=== PATIENT | male | born 1975 | race Caucasian/White ===

== ENCOUNTER → 2017-01-20 | Day surgery (SDC) | payer BC ==
[~2017-01-20] VITALS: Ht 193 cm; Wt 93.0 kg
[~2017-01-20] MED LIST: FENTANYL CITRATE INJ 50 MCG/1 ML 2 ML VIAL ONE; FLUT0.15 NAE; IBUP-1428 PO; ISOPROTERENOL 200 MCG / 50ML D5W IV ONE; LIDOCAINE HCL 1% 20 ML VIAL ONE; MIDAZOLAM HCL 5 MG/ML 1 ML VIAL ONE; MULT-506 PO; NURSING VERBAL MED ORDER ONE; OXYCODONE/ACETAMINOPHEN 5-325 TAB ONE; PANT40TA PO
[2017-01-20 12:19] VITALS: BP 121/79; PULSE 51; TEMP 36.4; O2SAT 99; Ht 193 cm; Wt 93.0 kg
--- NOTE | 2017-01-20 12:47 | History & Physical Bridge Note ---
H&P Re-Evaluation Bridge Note: I have examined the patient, reviewed the History & Physical and in the interval since the performance of the History & Physical I have noted the following changes of clinical significance: Updated HNP pt wishes to proceed with EPS and possible ablation
--- NOTE | 2017-01-20 12:48 | Procedure Note ---
Pre-Mod Sedation Assessment General Date of Moderate Sedation: Jan 20, 2017. Vital Signs: Vital Signs Past 12 Hours Date Time Temp Pulse Resp B/P (MAP) Pulse Ox O2 Delivery O2 Flow Rate FiO2 01/20/17 12:19 36.4 51 16 121/79 99 Room Air Review Cardiovascular: regular rate, rhythm, no JVD, + bradycardia Abdomen: soft Lungs: lungs clear Airway Class: II Pre-Sedation Airway Assessment Oral Cavity: WNL Short Thick Neck: No Hx of Sleep Apnea: No Smoking Status: Former Smoker Mallampati Classification: Class II ASA Classification: Class II Procedure Planning Contraindications-for Mod Sed: None Yes Notes The planned sedation has been discussed with the patient and consent obtained. I have identified the patient, determined the appropriateness of sedation and have assessed the patient immediately prior to the procedure. All medicine(s) and interventions are by my order.
--- NOTE | 2017-01-20 12:51 | History and Physical ---
History & Physical Date Jan 20, 2017. Chief Complaint palpitations History of Present Illness The patient is a 41 year old male with complaints of Past Medical/Surgical History PMH: pat raynauds cryptococcus/blastomytosis elevated TG PSH: EPS Amputation of finger/thumb colonoscpy appendectomy Additional History Hepatic Disease: No Endocrine Disorder: No Kidney Disease: No Hypertension: Yes Bleeding Tendencies: No Infectious Diseases: Yes Allergies Coded Allergies: No Known Allergies (Verified Allergy, Unknown, 08/18/04) Home Medications Scheduled Fluticasone Propionate (Nasal) (Flonase Allergy Relief), 2 SPRAYS ZEHRA DAILY Multivitamin (Multivitamin), 1 TAB PO DAILY Pantoprazole (Protonix), 40 MG PO DAILY Scheduled PRN Ibuprofen (Motrin), 800 MG PO TID PRN for Pain Physical Examination Skin: warm/dry Neck: supple Respiratory/Chest: lungs clear, normal breath sounds Cardiovascular: regular rate, rhythm, no edema, no murmur, + bradycardia Neurologic/Psych: alert ASA Classification: ASA Class II Plan of Treatment recommend eps with possible ablation
--- NOTE | 2017-01-20 15:04 | Procedure Note ---
Post-Mod Sedation Assessment General Date of Moderate Sedation Jan 20, 2017. Vital Signs: Vital Signs Past 12 Hours Date Time Temp Pulse Resp B/P (MAP) Pulse Ox O2 Delivery O2 Flow Rate FiO2 01/20/17 12:19 36.4 51 16 121/79 99 Room Air Review - Discharge Criteria Vital Signs Stable: Yes Alert/Oriented/Conversant: Yes Returned to Baseline Mental St: Yes Nausea Absent/Minimal: Yes Pain/Discomfort/Absent/Minimal: Yes Normal/Baseline Respirations: Yes Active Bleeding?: No Pt Received D/C Instructions: N/A Prescriptions Given: None Specific Proced. D/C Criteria Distal Pulses Present (Cardiac: Yes Groin site assessed-Card Cath: Yes Voided Prior To Discharge: N/A Discharged Patients Adult Escort/Transportation: N/A
--- NOTE | 2017-01-20 15:06 | [facility] Post Operative Brief Note ---
Immediate Operative Summary Operative Date Jan 20, 2017. Pre-Operative Diagnosis palpitations, pat Post-Operative Diagnosis same and inappropriate sinus tachycardia Procedure(s) Performed eps, isoprel infusion Surgeon walter davila Revenue Coordinator Surgeon(s) none Estimated Blood Loss <5cc Findings see official report Fluids (cc crystalloids) 300cc Specimens none Drains none Anesthesia 10mg versed and 250mcg fentanyl Complication(s) None Disposition laboratory technical specialist holding
--- NOTE | 2017-01-20 15:09 | Discharge Instructions ---
Discharge Instructions Date of Service Jan 20, 2017. Admission Reason for Admission: *No Anes Per [facility]* Svt Discharge Discharge Diagnosis / Problem: palpitations; inappropriate sinus tachycardia Discharge Goals Goal(s): Improve function Activity Recommendations Activity Limitations: as noted below Lifting Limitations: no more than 10 pounds (no heavy lifting or squating for 1 week) May Resume Sexual Activity: after one week Shower/Bathe: tomorrow Driving or Machine Use: resume 1 day after discharge . Instructions / Follow-Up Instructions / Follow-Up ACTIVITY RECOMMENDATIONS: It is common to feel weak and fatigue for a few days. * Do not drive or operate any motorized equipment for the next 1 day. * Limit stair usage (2 or 3 trips a day only) for the next 1 day. * Do not lift anything heavier than 10 pounds for the next 7 days. * Do not engage in vigorous exercise or any sports for the next 7 days. * You may shower the day after your procedure, but do not immerse the area for three days. Cleanse the site gently with soap and water. SPECIAL CARE INSTRUCTIONS: * You may replace the pressure dressing or band-aid the morning after the procedure. * After your procedure, it is normal to have a small bruise or small lump at the site. Examine your site daily for any change in the bruise or lump, redness, swelling, drainage or numbness. Notify your doctor if any change. BLEEDING: * If there is a small amount of bleeding at the site, lie down and apply firm pressure with a clean cloth for ten minutes. When the bleeding stops, lie quietly keeping the procedure limb straight for six hours. Notify your doctor as soon as possible. * If the bleeding does not stop after ten minutes or if there is a large amount of bleeding or spurting, call 911 immediately. Continue to lie down and hold firm pressure until help arrives. SKIN IRRITATION: * You may experience some redness and/or swelling in the area where radiation was administered. If any skin irritation occurs, please contact your family physician. FOLLOW UP VISIT: Keep any scheduled doctor appointments. Current Hospital Diet Patient's current hospital diet: Regular Diet Discharge Diet Recommended Diet: Regular Diet Procedures Procedures Performed: eps, isoprel infusion Pending Studies Studies pending at discharge: no Medical Emergencies . Who to Call and When: Medical Emergencies: If at any time you feel your situation is an emergency, please call 911 immediately. . Non-Emergent Contact Non-Emergency issues call your: Office Mover . . "Provider Documentation" section prepared by Sruthi Gray. . VTE Core Measure Inpt VTE Proph given/why not?: Treatment not indicated
--- NOTE | 2017-01-20 15:51 | OPERATIVE REPORT ---
DATE OF OPERATION: 01/20/2017 PREOPERATIVE DIAGNOSES: Palpitations and premature atrial contraction. POSTOPERATIVE DIAGNOSES: Same plus inappropriate sinus tachycardia. PROCEDURE: Electrophysiology study, isuprel drug infusion challenge. SURGEON: Sruthi Gray DO PEDAL ASSEMBLER: None. ANESTHESIA: Monitored conscious sedation administered under my supervision by Joni Lopez; start time 1318 and end time 1500, total of 10 mg of Versed, 250 mcg of fentanyl. INTRAVENOUS FLUIDS: 300 mL. COMPLICATIONS: None. CONDITION: Stable. URINE OUTPUT: Not applicable. SPECIMENS: None. FINDINGS: See below. DRAINS: None. INDICATIONS FOR PROCEDURE: This 41-year-old gentleman who has a past medical history for palpitations in which he underwent electrophysiology study went back in 1991 where he has reported to have had nonsustained paroxysmal atrial tachycardia. He then underwent another electrophysiology study in 1992 and was reported to have mapped the tachycardia to the RA SVC junction but no ablation was done probably because this was right over the SA node area. He had been on beta blockers and digoxin in the past as well as flecainide in the past. He also has a past medical history of Raynaud's phenomenon, cryptococcal blastomycosis of the lung in 2012, and elevated triglycerides in 2014. Due to his recurrent palpitations that seemed to be worsening, he was brought back for electrophysiology study in hopes that many years later the technology is better and we could further help alleviate his symptoms. CONSENT: Consent was obtained prior to the patient going into the electrophysiology lab here. The patient was explained the risks, benefits and alternatives to the procedure. Risks include but not limited to sudden cardiac ; cardiac arrhythmias; cerebrovascular accident; myocardial infarction; injury to the blood vessels, chamber of the heart or the [place] electrical system where he would need a permanent pacemaker; bleeding and infection. The patient understood these risks and agreed to go to the procedure as planned. Informed consent was obtained. DESCRIPTION OF THE PROCEDURE: The patient was brought into the electrophysiology lab in a fasting state. He was connected to continuous night monitor. A timeout was performed to ensure patient's identity and procedure correctly. The patient was prepped and draped over the bilateral groins in normal surgical standard fashion. Monitored conscious sedation was given throughout the procedure under my supervision for patient's comfort level. [place] precautions were maintained throughout the procedure. Using modified Seldinger technique, 10 mL of 1% lidocaine were given in the bilateral groins for local anesthesia. Then using the modified Seldinger technique, venous access was obtained in the following manner. The left femoral vein had a 7-[place]man[place] sheath followed then by a Couran F catheter positioned over the His bundle. A 7-[place] sheath followed by a Biosense Decapolar DF curve coronary sinus catheter positioned out in the coronary sinus. The right femoral vein had a 6-[place]man[place] sheath, followed by a Tita quadripolar catheter positioned in the high rate atrium. A 6-[place]man[place] sheath, followed by a Tita quadripolar catheter positioned into the right ventricular apex. Of note, when I was trying to get access on the left side, I did hit the artery a few times with the access needle. We held pressure and there was no hematoma. Once the catheters were in position, electrophysiology study was performed with the following findings: NJ interval 110 milliseconds, QRS 92 milliseconds, QT 392 milliseconds. Sinus cycle length 866 milliseconds, AH70 milliseconds, HV 40 milliseconds. AV Wenckebach was 480 milliseconds. AV node ERP was 700/300 and 500/410. The atrial ERP was 700/220 and 500/320. The Right ventricular ERP was 600/230 and 400/210. Isuprel of 2 was started. Of note, when he was on isuprel at 2, the heart rate barely augmented but then at one juncture I saw the heart rate jumped from [id number] and then back to 80, all within a few minutes of time. Isuprel of 2, the NJ interval was 132 milliseconds, QRS 76 milliseconds, QT 344 milliseconds. Sinus cycle length 554 milliseconds, AH 64 milliseconds, HV 45 milliseconds, AV Wenckebach was at 270 milliseconds, the AV node ERP was 400/280 milliseconds, the atrial ERP was 400/230 and the right ventricular ERP was 400/200. I gave up to triples from the high right atrium as well as burst paced the high right atrium all the way down to 200 at multiple times. While on 2 of isuprel, there was one point where after being on isuprel for a very longtime and still not the best augmenting of his heart rate at 400/370/280/270, I did not induce tachycardia with the cycle length of 348 milliseconds, the HV was 58 milliseconds, the VA time was 98 milliseconds. 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 I highly doubt this was his clinical tachycardia. I continued to try to induce on 2 of isuprel and again heart rates were very variable during the isuprel infusion. I increased the isuprel to 4 and there once again was very variable heart rate, I never saw that go up above 150s. The Isuprel was then washed out and during even the washout, I saw the heart rate jump from 80s-130s, 150s and then back down to 80s. I tried inducing up to triples as well as atrial burst pacing while during washout as well as on Isuprel 4 and I was never able to induce any arrhythmias. IMPRESSION: 1. Most likely he has got a form of inappropriate sinus tachycardia. 2. Normal atrioventricular jaime function. PLAN: Monitor patient post-procedure and sedation. He is not allowed to do any heavy lifting or squatting for 1 week. I will see him back in the office in 1 months' time. I will talk to him about considering to try maybe propranolol or a different beta sherman to see if he tolerates this a little better as it has been many years and this might help some of his rhythm, but I think it is his clinical problem of inappropriate sinus tachycardia. I attest to the content of the Intraoperative Record and any orders documented therein. Any exceptions are noted below. CRISTINA
[2017-01-20 17:00] VITALS: BP 117/78; PULSE 65; O2SAT 98
== END | disposition home or self-care (01) ==
LOC: C.EP 12:05
PROVIDERS: ATTEND Internal Medicine
DX: R00.2 Palpitations (principal); I49.1 Atrial premature depolarization; Z90.89 Acquired absence of other organs; Z89.029 Acquired absence of unspecified finger(s)